=== PATIENT | male | born 1990 | race Caucasian/White ===

== ENCOUNTER 2023-01-25 16:35 | Emergency (ER) | payer MEDICAID ==
[~2023-01-25] VITALS: Ht 167.6 cm; Wt 81.6 kg
[2023-01-25 16:54] VITALS: BP 134/83; PULSE 101; RESP 20; TEMP 98; O2SAT 98
[2023-01-25 18:00] VITALS: BP 134/83; PULSE 101; RESP 20; TEMP 98; O2SAT 98
== END 2023-01-25 18:00 | disposition home or self-care (01) ==
LOC: MED 16:35
DX: R14.0 Abdominal distension (gaseous) (principal); R03.0 Elevated blood-pressure reading, without diagnosis of hypertension
CPT/HCPCS: 99281